=== PATIENT | female | born 1970 | race Caucasian/White ===

== ENCOUNTER → 2018-03-07 | Outpatient (CLI) | payer OTHER | LOC: CIMAGING 14:13 | DX: Z12.31 Encounter for screening mammogram for malignant neoplasm of breast (principal); Z80.3 Family history of malignant neoplasm of breast ==

== ENCOUNTER → 2018-03-22 | Outpatient (CLI) | payer OTHER | LOC: CIMAGING 13:40 | PROVIDERS: ATTEND Physician Assistant Medical | DX: N63.10 Unspecified lump in the right breast, unspecified quadrant (principal) | CPT/HCPCS: 76641-PO ==

== ENCOUNTER → 2018-03-23 | Outpatient (CLI) | payer OTHER | LOC: BRMIMAGING 12:35 | PROVIDERS: ATTEND Physician Assistant Medical | DX: Z13.820 Encounter for screening for osteoporosis (principal); M85.89 Other specified disorders of bone density and structure, multiple sites; E04.1 Nontoxic single thyroid nodule; Z82.62 Family history of osteoporosis; Z78.0 Asymptomatic menopausal state ==